=== PATIENT | male | born 1975 | race Caucasian/White ===

== ENCOUNTER 2017-10-24 01:18 | Emergency (ER) | payer OTHER ==
[2017-10-24] MEDS ORDERED: XYLOCAINE 2% INFILTRATI ONE (01:34)
--- NOTE | 2017-10-24 01:34 | Emergency Department Report ---
ED Male HPI - General Stated complaint: LACERATION TO PENIS Time Seen by Provider: 10/24/17 01:30 - History of Present Illness Initial comments: 41-year-old male past medical history hypertension presents with complaint of laceration to the top of his penis. Patient states that he took a razor blade and attempted to extract a piece of plastic which was placed in his penis for anesthetic reasons. Patient made a horizontal laceration across the dorsal aspect of his penis with a razor blade. States he did this at 7 PM last night. Had persistent bleeding from penis which did not stop. Pt is in custody of present facility representatives. Patient is actively bleeding and has blood soaked pants and underwear. Patient mostly speaks Wallisian and some Spanish. Does not know tetanus vaccine status. Self-inflicted injury as per patient. Accompanied by [facility]. MD Complaint: genital injury, groin pain -: This evening Location: penis Severity: mild - Related Data Home Medications Medication Instructions Recorded Confirmed Last Taken Atenolol [Tenormin] 25 mg PO QHS 10/24/17 10/24/17 Unknown Previous Rx's Medication Instructions Recorded Last Taken Type Acetaminophen [Acetaminophen TAB] 500 mg PO Q6HR PRN #20 tablet 10/24/17 Unknown Rx Cephalexin [Keflex] 500 mg PO Q12HR #14 cap 10/24/17 Unknown Rx Allergies Allergy/AdvReac Type Severity Reaction Status Date / Time ibuprofen [From Motrin] Allergy Dizziness Verified 10/24/17 02:28 ED Review of Systems ROS: Stated complaint: LACERATION TO PENIS Other details as noted in HPI Constitutional: denies: chills, fever Eyes: denies: eye pain, eye discharge, vision change ENT: denies: ear pain, throat pain Respiratory: denies: cough, shortness of breath, wheezing Cardiovascular: denies: chest pain, palpitations Endocrine: no symptoms reported Gastrointestinal: denies: abdominal pain, nausea, diarrhea Genitourinary: as per HPI (states he has inserted a plastic beads into his penis for anesthetic purposes. States he had 2 beads and removed one last week. Attempted to remove second one this evening). denies: urgency, dysuria Musculoskeletal: denies: back pain, joint swelling, arthralgia Skin: denies: rash, lesions Neurological: denies: headache, weakness, paresthesias Psychiatric: denies: anxiety, depression Hematological/Lymphatic: denies: easy bleeding, easy bruising ED Past Medical Hx - Medications Home Medications: Home Medications Medication Instructions Recorded Confirmed Last Taken Type Acetaminophen [Acetaminophen TAB] 500 mg PO Q6HR PRN #20 tablet 10/24/17 Unknown Rx Atenolol [Tenormin] 25 mg PO QHS 10/24/17 10/24/17 Unknown History Cephalexin [Keflex] 500 mg PO Q12HR #14 cap 10/24/17 Unknown Rx ED Physical Exam - General General appearance: alert, in no apparent distress - Head Head exam: Present: atraumatic, normocephalic - Eye Eye exam: Present: normal appearance - ENT ENT exam: Present: mucous membranes moist - Neck Neck exam: Present: normal inspection - Respiratory Respiratory exam: Present: normal lung sounds bilaterally. Absent: respiratory distress - Cardiovascular Cardiovascular Exam: Present: regular rate, normal rhythm. Absent: systolic murmur, diastolic murmur, rubs, gallop - GI/Abdominal GI/Abdominal exam: Present: soft, normal bowel sounds - Rectal Rectal exam: Present: deferred - exam: Present: other (horizontal laceration across his last Motrin) - Expanded Exam Expanded image: 1 - Horizontal laceration here. Active bleeding on initial exam. - Extremities Exam Extremities exam: Present: normal inspection - Back Exam Back exam: Present: normal inspection - Neurological Exam Neurological exam: Present: alert, oriented X3 - Psychiatric Psychiatric exam: Present: normal affect, normal mood - Skin Skin exam: Present: warm, dry, intact, normal color. Absent: rash ED Course Vital Signs 10/24/17 10/24/17 10/24/17 01:35 01:50 02:10 Temperature 99.5 F Pulse Rate 133 H 92 H 86 Respiratory 19 16 16 Rate Blood Pressure 62/37 110/62 109/65 [Left] O2 Sat by Pulse 100 100 100 Oximetry 10/24/17 02:54 Temperature Pulse Rate 95 H Respiratory 17 Rate Blood Pressure [Left] O2 Sat by Pulse 100 Oximetry ED Medical Decision Making - Lab Data Result diagrams: 10/24/17 01:48 10/24/17 01:48 - Medical Decision Making A/P: Penile laceration 1-I was able to stop the bleeding with pressure and 3 sutures placed directly overlying the laceration site. Patient has not had spontaneous rebleed. 2-patient had a brief vasovagal episode. Patient was given 2 L of IV fluid and return to stable vital signs clinically denies any pain and feels significantly better 3-patient has voided more than 750ccs of urine as seen on urinal independently. 4- I discussed case with [facility] on-call urologist Dr. Sol. As per my discussion with Dr. Sol as bleeding is under control H&H is stable patient is not currently hemodynamically unstable and is able to void urine on his own there is no indication for emergent transfer or any urologic imaging at this time. Patient needs follow-up with outpatient urology. I advised patient to no longer self inflicted wounds on his penis. 5- tetanus vaccine updated today. Sutures to be removed in 7-10 days. 3 5-0 nylon sutures placed overlying wound site. I covered area with gauze and tape Critical care attestation.: If time is entered above; I have spent that time in minutes in the direct care of this critically ill patient, excluding procedure time. ED Disposition Clinical Impression: Laceration of penis Qualifiers: Encounter type: initial encounter Qualified Code(s): S31.21XA - Laceration without foreign body of penis, initial encounter Disposition: TO HOME OR SELFCARE Is pt being admited?: No Does the pt Need Aspirin: No Condition: Stable Instructions: Suture Care (ED), Laceration (ED) Additional Instructions: Sutures to be removed in 7-10 days Prescriptions: Acetaminophen [Acetaminophen TAB] 500 mg PO Q6HR PRN #20 tablet PRN Reason: Pain , Severe (7-10) Cephalexin [Keflex] 500 mg PO Q12HR #14 cap Referrals: PRIMARY CAREMD [Primary Care Provider] - 3-5 Days [facility] [Provider Group] - 3-5 Days Time of Disposition: 04:10
[2017-10-24] MEDS ORDERED: NACL 0.9% 1000 ML 1,000 ML ONE ×2 (01:36→01:39)
[2017-10-24] MEDS ORDERED: NACL 0.9% 1000 ML 1,000 ML IV ONE ×3 (01:40→03:06)
[2017-10-24] MEDS ORDERED: XYLOCAINE 1% 20 mL INFILTRATI ONE (01:41)
[2017-10-24 02:12] LABS: Basophils % (Auto) 0.5 % (0.0-1.8); Eosinophils % (Auto) 0.1 % (0.0-4.3); Hematocrit 40.3 % (35.5-45.6); Hemoglobin 13.8 gm/dl (11.8-15.2); Lymphocytes # (Auto) 1.9 K/mm3 (1.2-5.4); Lymphocytes % (Auto) 21.9 % (13.4-35.0); Mean Corpuscular HGB Conc 34 % (32-34); Mean Corpuscular Hemoglobin 30 pg (28-32); Mean Corpuscular Volume 88 fl (84-94); Monocytes # (Auto) 0.7 K/mm3 (0.0-0.8); Monocytes % (Auto) 7.6 % (0.0-7.3); Platelet Count 201 K/mm3 (140-440); Red Blood Count 4.57 M/mm3 (3.65-5.03); Red Cell Distribution Width 13.1 % (13.2-15.2)
[2017-10-24 02:18] LABS: INR 0.97 (0.87-1.13)
[2017-10-24 02:19] LABS: Partial Thromboplastin Time 29.3 Sec. (24.2-36.6)
[2017-10-24 02:25] LABS: Alanine Aminotransferase 64 units/L (7-56); Albumin 4.3 g/dL (3.9-5); BUN/Creatinine Ratio 16; Blood Urea Nitrogen 14 mg/dL (9-20); Calcium 9.2 mg/dL (8.4-10.2); Hemolysis Index 6
[2017-10-24] MEDS ORDERED: TYLENOL PO ONE (04:13)
[2017-10-24] MEDS ORDERED: BOOSTRIX IM ONE (04:13)
[2017-10-24] MEDS ORDERED: KEFLEX PO ONE (04:19)
[2017-10-24 04:56] VITALS: BP 115/81
== END 2017-10-24 04:59 | disposition home or self-care (01) ==
LOC: ED 01:18 → EEVIPCON 01:18 → ED 04:59
DX: S31.21XA Laceration without foreign body of penis, initial encounter (principal); W26.8XXA Contact with other sharp object(s), not elsewhere classified, initial encounter; Y93.89 Activity, other specified; Y92.89 Other specified places as the place of occurrence of the external cause; Y99.8 Other external cause status; Z88.8 Allergy status to other drugs, medicaments and biological substances
CPT/HCPCS: 36415; 80053; 85025; 85610; 85730; 86850; 86900; 86901; 90471; 90715; 96360; 96361; 99284; J7030